=== PATIENT | female | born 1980 | race Caucasian/White ===

== ENCOUNTER 2021-05-07 11:36 | Emergency (ER) | payer OTHER, SELFPAY ==
[2021-05-07 11:39] VITALS: BP 140/87; PULSE 91; RESP 20; TEMP 36.3; O2SAT 100
== END 2021-05-08 04:36 | disposition left against medical advice (07) ==
LOC: ANHED 12:59
PROVIDERS: PCP Emergency Medicine
DX: R10.31 Right lower quadrant pain (principal)
CPT/HCPCS: 99199